=== PATIENT | male | born 1960 | race Caucasian/White ===

== ENCOUNTER → 2024-02-15 14:55 | Outpatient (REF) | payer OTHER, SELFPAY | LOC: MRI 3T 14:55 | PROVIDERS: ATTENDING PHYSICIAN Surgery; FAMILY PHYSICIAN Family Medicine | DX: R97.20 Elevated prostate specific antigen [PSA] (principal) | CPT/HCPCS: 72197; A9575 ==

== ENCOUNTER → 2024-03-21 07:29 | Outpatient (REF) | payer OTHER, SELFPAY | LOC: RAD 07:29 | PROVIDERS: ATTENDING PHYSICIAN Family Medicine | DX: I65.21 Occlusion and stenosis of right carotid artery (principal) | CPT/HCPCS: 93880 ==

== ENCOUNTER 2025-06-12 22:08 | Inpatient (IN) | payer MEDICARE, OTHER, SELFPAY ==
[2025-06-12 17:02] VITALS: BP 175/97
[2025-06-12 17:26] LABS: Urine Character Slightly Cloudy (Clear)
[2025-06-12 17:28] LABS: Hematocrit 38.7 % (39.0-52.0); Hemoglobin 13.1 g/dL (13.0-18.0); Mean Corp Hgb Conc. 33.9 g/dL (33.0-37.0); Mean Corpuscular Volume 91.9 fL (80.0-94.0); Nucleated Red Blood Cells % 0 % (-); Platelet Count 253 10^3/uL (130-400); Red Cell Dist. Width 12.9 % (11.5-14.5)
[2025-06-12 17:35] LABS: Urine Squamous Cell 0-2 /LPF (Few)
[2025-06-12 17:36] LABS: Urine Red Blood Cell 0-2 /HPF (0-2); Urine White Cell 50-60 /HPF (0-5)
[2025-06-12 17:43] LABS: ALT (SGPT) 46 U/L (0-50); AST (SGOT) 42 U/L (17-59); Albumin 4.0 g/dl (3.5-5.0); Alkaline Phosphatase 77 U/L (38-126); Blood Urea Nitrogen 9 mg/dl (9-20); Calcium 9.1 mg/dl (8.4-10.2); Carbon Dioxide 27 mmol/L (22-30); Chloride 103 mmol/L (98-107); Glucose 93 mg/dl (70-99); Potassium 4.4 mmol/L (3.5-5.1); Sodium 136 mmol/L (135-145); Total Protein 6.9 g/dl (6.3-8.2); eGFR > 60.00
--- NOTE | 2025-06-12 20:30 | ED.GENMED ---
History of Present Illness
General
Chief Complaint: Post Operative Problem(s)
Source: patient and spouse
Exam Limitations: none
Time Seen by Provider: 06/12/25 20:20
Nursing documentation reviewed up to this point in time: agreed with
History of Present Illness
History of Present Illness:
65-year-old male with a past medical history hypertension who presents to the ER for evaluation of fever and chills. Patient notably had a prostate biopsy on 06/04 after an elevated PSA; this was done at [facility] through Dr. Mei
Leidy. He was sent home on prophylactic antibiotic cefpodoxime x 3 days. He completed the course last . He says that Wednesday night into Wednesday morning he had shaking chills with a fever of 101 �F. He was taking Tylenol over the
weekend and felt generally well but yesterday and today again was having subjective fever and chills. He has been having some dysuria over the past few days and says that today he noticed some trace hematuria. He called his urologist who
recommended he come to the ER for assessment. He denies any abdominal or flank pain. He denies any other acute issues.
Review of Systems
Review of Systems
All Other Systems: ROS reviewed and negative except as documented in HPI and ROS
Constitutional: Reports fever and chills
Respiratory: Denies cough or trouble breathing
Cardiac: Denies chest pain
ABD/GI: Denies abdominal pain, nausea or vomiting
: Reports dysuria and bleeding; Denies flank pain
Musculoskeletal: Denies neck pain or back pain
Neurological: Denies headache
Phy Exam
Physical Exam
Physical Exam:
General: Awake, alert, oriented x3; no acute distress
Head: Normocephalic, atraumatic
Eyes: Conjunctiva normal, sclera anicteric
Throat: Airway intact, handling secretions
Neck: Trachea midline, supple without meningismus
Lungs: Breathing comfortably not in distress
Heart: Regular rate
Abd: Soft, non distended, nontender
Back: No CVA tenderness
Neuro: Grossly intact
Extremities: Warm and well-perfused
Scores
Heart Failure Risk
Heart Failure Risk Score: Not Applicable
Heart Score for Chest Pain Patients
STEMI patient?: Not applicable
Withdrawal Assessment of Alcohol
Withdrawal Assessment Completed?: Not applicable
Course
Orders/Labs/Results
Orders:
Orders
06/12/25 17:09
Complete Blood Count/With Diff Urgent
Comprehensive Metabolic Panel Urgent
Lactic Acid Urgent
Urinalysis Reflex To Culture Urgent
Date Specimen was Collected: 06/12/25
Time Specimen was Collected: 17:07
Urine Microscopic Reflex Cult Urgent
Blood Culture Routine
VASILE Source: Blood/Venous
Specimen Description:
Urine Culture Urgent
VASILE Source: U
Specimen Description:
Date Specimen was Collected: 06/12/25
Time Specimen was Collected: 17:07
06/12/25 21:00
Piperacillin/Tazo 3.375 Gram [Zosyn] 3.375 gram in 50 ml IV NOW
06/12/25 21:15
Blood Culture Q30M
VASILE Source: Blood/Venous
Specimen Description:
06/12/25 21:45
Blood Culture Q30M
VASILE Source: Blood/Venous
Specimen Description:
Abnormal Lab Results
06/12/25
17:09
WBC 13.3 H 10^3/uL
(4.8-10.8)
RBC 4.21 L 10^6/uL
(4.70-6.10)
Hct 38.7 L %
(39.0-52.0)
MCH 31.1 H pg
(27.0-31.0)
Abs Immat Gran (auto) 0.1 H 10^3/uL
(0-0.05)
Absolute Neuts (auto) 9.9 H 10^3/uL
(1.4-6.5)
Absolute Monos (auto) 1.6 H 10^3/uL
(0.1-0.6)
Lymphocytes % 12.6 L %
(20.5-51.1)
Monocytes % 12.2 H %
(1.7-9.3)
Ur Occult Blood Reflex 4+ A
(Negative)
Leukocyte Esterase Rfl 3+ A
(Negative)
Urine WBC (Reflex) 50-60 A /HPF
(0-5)
Urine Bacteria (Reflex) Few A
(Negative)
Urine Albumin (Reflex) 2+ A
(Neg - Trace)
06/12/25 17:09
06/12/25 17:09
Vital Signs
Initial and Last Documented VS:
Initial Vital Signs
Temp Pulse Resp BP Pulse Ox
37.5 C 91 16 175/97 97
06/12/25 17:02 06/12/25 17:02 06/12/25 17:02 06/12/25 17:02 06/12/25 17:02
Last Documented Vital Signs
Temp Pulse Resp BP Pulse Ox
37.5 C 91 16 175/97 97
06/12/25 17:02 06/12/25 17:02 06/12/25 17:02 06/12/25 17:02 06/12/25 20:34
MDM/Problems Addressed
Differential Diagnosis Includes:
Prostatitis, cystitis/urethritis
MDM/Problems Addressed:
65-year-old male presents for evaluation of fever and chills after recent prostate biopsy. Hypertensive but otherwise acceptable vitals. Physical exam as above. He had labs sent in triage including a CBC which showed a leukocytosis to 13.3. CMP
no clinically significant abnormalities. Lactate less than 2. His urinalysis is positive for bacteria pyuria. Suspect UTI/prostatitis. Overall patient is well-appearing; although he does have leukocytosis he is normotensive, heart rate in the
80s during my assessment, no fever here. Will discuss treatment plan with patient's urologist at [facility].
Discussed case with urologist at [facility]recommended admission on IV antibiotics pending culture of urine and blood. Recommended starting with broad-spectrum antibiotics. Case discussed with hospitalist for admission.
*Pulse Oximetry
SaO2: 97
Oxygen Mode of Delivery: Room air
Patient hypoxic: no (97%)
*Critical Care Note
Total Time (30-74mins, 75-104mins- exclusive of procedures): Not Applicable
Data Reviewed
Source: patient, records and spouse
Patient Management
Discussion with other providers: Hospitalist (Discussed with hospitalist) and Food [employer] Beverage Intern (Discussed with his urologist)
Escalation/DeEscalation of care consider admission/obs:
Admission indicated
ED Attending Note
-
Portions of this chart may have been created with voice recognition software.� Occasional wrong word or��sound alike� substitutions may have occurred due to the inherent limitations of voice recognition software.
Discharge Plan
Departure
Patient Disposition: Admit
Date of Disposition: 06/12/25
Time of Disposition: 21:02
Admit to doctor: Idalmis
Presentation/result/management discussed w/ accepting MD/DO: Hospitalist
Discharge Problem:
Acute UTI
Referrals:
Yanick Tucker MD [Family Provider, Family Practice]
Interventions
Interventions:
*Risk Screen - Suicide Last Done: 06/12/25 17:02
*General Assessment Last Done: 06/12/25 17:02
*Neglect/Abuse Screening Last Done: 06/12/25 17:02
*ED COVID-19 Vaccine History Last Done: 06/12/25 17:02
*ED Influenza Vaccine History Last Done: 06/12/25 17:02
ED-Skin Assessment Last Done: 06/12/25 20:30
Discharge Date and Time
Print Language: SWEDISH
[2025-06-12] MEDS: ZOSYN 50 IV (21:22)
--- NOTE | 2025-06-12 21:22 | HPS.HSE ---
Family Physician
-
Family Physician: Yanick Tucker
Chief Complaint
-
FEVER, CHILLS, DYSURIA
History of Present Illness
65-year-old male with a past medical history hypertension who presents to the ER for evaluation of fever and chills. Patient notably had a prostate biopsy on 06/04 after an elevated PSA; this was done at [facility] through Dr. Mei
Leidy. He was sent home on prophylactic antibiotic cefpodoxime x 3 days. He completed the course last . He says that Wednesday night into Wednesday morning he had shaking chills with a fever of 101 �F. He was taking Tylenol over the
weekend and felt generally well but last night he started having fever, shaking chills. today he noted painful urination and some blood in his urine. he complained of THORPE. denied dizzy or syncope. denied chest pain sob. denied abdominal pain,n,v,d.
concern for prostatitis. gave Zosyn. admitting for further management.
Medical History
Past Medical History
Past Medical History: Reports Other
Additional Past Medical History:
hypertension, hyperlipidemia, BPH
Past Surgical History: Reports Other
Additional Past Surgical History:
b/l knee replacement
Social History
Tobacco: Non-smoker
Alcohol: Occasional
Family History
Family History: Not pertinent
Allergies / Home Medications
Allergies reflects when Allergies were last updated in [employer].
Home Medications with original date entered in [employer]
Allergy/Medication List:
Allergies
Allergy/AdvReac Type Severity Reaction Status Date / Time
No Known Allergies Allergy Unverified 06/12/25 17:08
Review of Systems
-
Constitutional: Reports Fever and Chills
EENT: Reports No Symptoms
Respiratory: Reports No Symptoms
Cardiac: Reports No Symptoms
Abdomen/GI: Reports No Symptoms
: Reports Dysuria and Bleeding
Musculoskeletal: Reports No Symptoms
Skin: Reports No Symptoms
Neurological: Reports No Symptoms
Endocrine: Reports No Symptoms
Hematologic/Lymphatic: Reports No Symptoms
Psych: Reports No Symptoms
Physical Exam
Vital Signs
Vital Signs
Temp Pulse Resp BP Pulse Ox
99.5 F 91 16 175/97 97
06/12/25 17:02 06/12/25 17:02 06/12/25 17:02 06/12/25 17:02 06/12/25 20:34
Physical Exam
General: Well Developed, Well Nourished and No Apparent Distress
HEENT: NormoCephalic, Moist mucous membranes and Atraumatic
Respiratory: Clear
Cardiac: S1/S2 and Regular Rhythm; No Murmur or Rub
GI: Soft, Non Tender, Non Distended and Normal Bowel Sounds; No Organomegaly
Rectal: Deferred by Provider
Musculoskeletal: No Clubbing, No Cyanosis and No Edema
Skin: No Rash
Neuro: AO x 3 and Nonfocal/grossly intact
Psych: Calm
Laboratory Results
-
06/12/25 17:09
06/12/25 17:09
Laboratory Results
Lactic Acid 0.9 mmol/L (0.7-2.0) 06/12/25 17:09
Total Bilirubin 0.4 mg/dl (0.2-1.3) 06/12/25 17:09
AST 42 U/L (17-59) 06/12/25 17:09
ALT 46 U/L (0-50) 06/12/25 17:09
Alkaline Phosphatase 77 U/L (38-126) 06/12/25 17:09
Data Reviewed
-
Lab Data: Labs Reviewed by me
Impression/Plan
-
# Fever, chills, dysuria concern for prostatitis
# Status post prior prostate biopsy last week
- IV cefepime continued
- Urine and blood culture sent from ER
- Tylenol as needed for fever or pain
- WBC 13.3, afebrile
#essential HTN
-valsartan continued
#DVT prophylaxis
-scd
#CODE status
-full code
[2025-06-12 21:23] VITALS: BMI 30.1
--- NOTE | 2025-06-12 21:47 | W.PN.UPDATE ---
Update Note
Progress Note Update
Patient seen in conjunction with nurse practitioner. I agree with the findings on history and physical and I concur with assessment and plan.
Patient is a 65-year-old with past medical history of hypertension as well as history of elevated PSA and prostatic dysplasia who underwent scheduled prostate biopsy via rectal approach 1 week ago. Today. Pain and patient is also known to
[facility]. Patient was covered with prophylactic antibiotics (cefpodoxime) postprocedure. He completed antibiotics on . He started having CVA dysuria on Wednesday. He denies flank pain. He does report rigors and chills. Did not have any
fever. Denies any constipation. Symptoms appear to wax and wane over the weekend but in the last 2 days they have become more persistent with recurrent rigors and transient hematuria.
In the emergency department he was afebrile, blood pressure was 175/90 with a pulse rate of 94
He was satting 96% on room air. Tmax was 99.5.
He had a white count of 13.3 otherwise CBC unremarkable. Electrolytes BUN and creatinine were normal. UA with 2 WBCs leukocyte esterase and a few bacteria.
Plan
65-year-old with. Status post prostate biopsy and likely here with prostatitis secondary to biopsy despite prophylactic antibiotics.
� Admit to MedSurg
� Blood cultures
� Urine cultures
� Of IV cefepime for now pending culture results
� Pain control
�Continue his valsartan
DVT prophylaxis - SCD
CODE STATUS�full code
[2025-06-12 22:32] VITALS: BP 153/70; BMI 28.6
[2025-06-12 22:37] VITALS: BMI 28.6
[2025-06-12] MEDS: TYLENOL 650 MG PO (22:49)
[2025-06-12] MEDS: STERILE WATER FOR INJECTION 10 ML IV (23:00)
[2025-06-12] MEDS: MAXIPIME 2000 MG IV (23:00)
--- NOTE | 2025-06-12 23:08 | PTCARENOTE ---
pt is aaox3, reports burning sensation w/ urination. pt also has a headache - given Tylenol. pt is oriented to room w/ call lynch in reach.
[2025-06-12 23:55] VITALS: BP 134/62
[2025-06-13] MEDS: TYLENOL 650 MG PO ×3 (05:11→19:04)
[2025-06-13 07:35] VITALS: BP 146/74
[2025-06-13] MEDS: DIOVAN 160 MG PO (08:32)
[2025-06-13] MEDS: STERILE WATER FOR INJECTION 10 ML IV ×3 (08:32→23:08)
[2025-06-13] MEDS: MAXIPIME 2000 MG IV ×3 (08:33→23:08)
[2025-06-13 08:47] LABS: Hematocrit 38.0 % (39.0-52.0); Hemoglobin 12.9 g/dL (13.0-18.0); Mean Corp Hgb Conc. 33.9 g/dL (33.0-37.0); Mean Corpuscular Volume 91.6 fL (80.0-94.0); Platelet Count 259 10^3/uL (130-400); Red Cell Dist. Width 13.1 % (11.5-14.5)
[2025-06-13 09:46] LABS: Blood Urea Nitrogen 8 mg/dl (9-20); Calcium 8.8 mg/dl (8.4-10.2); Carbon Dioxide 25 mmol/L (22-30); Chloride 105 mmol/L (98-107); Estimated Creatinine Clearance 109 ml/min; Glucose 104 mg/dl (70-99); Potassium 4.4 mmol/L (3.5-5.1); Sodium 137 mmol/L (135-145); eGFR > 60.00
--- NOTE | 2025-06-13 13:26 | W.PN.HOSP.TC ---
Today's Communication/Plan
-
f/u urine/blood cs report
maintain on iv abx
CT pelvis ordered
Assessment / Plan
Assessment / Plan
1. UTI
Presumed acute prostatitis
Sepsis - POA - tachycardic/febrile/leukocytosis
- Status post prior prostate biopsy last week
- UA showing pyuria and bacteriuria
- Urine and blood culture sent from ER
- on empiric cefepime, to continue for now
- check CT pelvis
2. Essential HTN
-valsartan continued
DVT prophylaxis-scd
CODE status-full code
Anticipated Discharge: 24 - 48 hours
Subjective/Interval History
-
Date of Service: June 13, 2025
Noted some blood, denies dysuria
no abd pain/nausea/vomiting
Objective Data
-
Labs:
Laboratory Results
06/13/25
08:05
WBC 16.4 H
Hgb 12.9 L
Hct 38.0 L
Plt Count 259
Sodium 137
Potassium 4.4
Chloride 105
Carbon Dioxide 25
BUN 8 L
Creatinine 0.7
Glucose 104 H
Calcium 8.8
Vital Signs:
Vital Signs
Temp Pulse Resp BP Pulse Ox
98.7 F 84 16 146/74 96
06/13/25 07:35 06/13/25 07:35 06/13/25 07:35 06/13/25 08:32 06/13/25 07:35
I&O
06/12/25 06/13/25 06/14/25
06:59 06:59 06:59
Intake Total 300 / 300
Balance 300 / 300
Review of Systems
-
Respiratory: Reports No Symptoms
Cardiac: Reports No Symptoms
Abdomen/GI: Reports No Symptoms
Physical Exam
-
General: Negative Appears in Distress
HEENT: Negative Oxygen
Neuro: Awake, Alert, Oriented and No Motor Deficits
[2025-06-13 15:25] VITALS: BP 147/66
--- NOTE | 2025-06-13 16:43 | CM ---
manager linux reviewed patient's chart and met with patient and patient lives with spouse multilevel home is independent with adl's and ambulation, no dme, patient drives, home no needs when stable.
PCP: Dr. Yanick Tucker
Pharmacy: [facility] in [place].
[2025-06-13 23:45] VITALS: BP 129/70
[2025-06-14 07:38] VITALS: BP 155/92
[2025-06-14] MEDS: DIOVAN 160 MG PO (08:38)
[2025-06-14] MEDS: MAXIPIME 2000 MG IV (08:38)
[2025-06-14] MEDS: STERILE WATER FOR INJECTION 10 ML IV (08:38)
[2025-06-14 10:59] LABS: Hematocrit 38.3 % (39.0-52.0); Hemoglobin 12.5 g/dL (13.0-18.0); Mean Corp Hgb Conc. 32.6 g/dL (33.0-37.0); Mean Corpuscular Volume 92.7 fL (80.0-94.0); Platelet Count 278 10^3/uL (130-400); Red Cell Dist. Width 13.1 % (11.5-14.5)
[2025-06-14 11:03] LABS: Blood Urea Nitrogen 10 mg/dl (9-20); Calcium 8.8 mg/dl (8.4-10.2); Carbon Dioxide 28 mmol/L (22-30); Chloride 104 mmol/L (98-107); Estimated Creatinine Clearance 109 ml/min; Glucose 115 mg/dl (70-99); Potassium 4.7 mmol/L (3.5-5.1); Sodium 137 mmol/L (135-145); eGFR > 60.00
--- NOTE | 2025-06-14 11:50 | CM ---
Chart reviewed. Patient will d/c home today
Met w/ patient and spouse bedside. IMM verbally reviewed, copy provided, copy on chart
No CM needs at this time
Plan: Home, no needs
[2025-06-14 12:05] VITALS: BP 148/73
--- NOTE | 2025-06-14 12:35 | W.DCSUMMARY ---
Discharge Summary
Discharge Data
Date of Admission: 06/12/25
Date of Discharge: 06/14/25
-
Pending Results: No
Hospital Course
Discharging Physician : Dr Leobardo Alfonso
Disposition : To home
Primary care physician : Dr Lan Tucker
Principal Discharge diagnosis :
Pseudomonal Urinary tract infection
Chronic Discharge diagnosis :
Essential HTN
Physical examination:
HEENT: moist mucus membrane
Chest: Clear to auscultation
Heart: N s1/s2, RRR, no rub/murmur/gallops
Abd: N BS, soft, nontender, nondistended, no organomegaly
Neuro: No motor deficit, aox3
Ext: No cyanosis, Clubbing, edema
Hospital Course :
Patient is a 65 year old male with past medical history of hypertension and recent prostate biopsy came to ER with new onset fever/chills and some dysuria. Patient UA in ER showing pyuria and bacteriuria. Patient diagnosed to have UTI and sepsis
from it. Urine culture and blood culture were collected. In light of recent prostate biopsy patient had CT pelvis, which did not show any acute findings. Urine culture grew pseudomonas , which was pansensitive to antibiotics. Patient was
discharged on 7 days course of levofloxacin. Patient is planned to follow up with urology in office in 1 week.
Important imaging findings :
None
Procedure findings :
None
Discharge Plan
-
Patient Disposition: Home (Routine Discharge)
Discharge Diagnosis/Procedures: Urinary tract infection
Condition: Fair
Diet: Regular
Activity: As tolerated
Driving Restrictions: No driving
Bathing Restrictions: OK to Shower
Referrals:
Yanick Tucker MD [Family Provider, [facility]] - in one week
Prescriptions:
New
levofloxacin 750 mg tablet
750 mg PO DAILY Qty: 7 0RF
Continued
valsartan 160 mg tablet
160 mg PO DAILY
Discharge Orders:
Discharge Patient (As Directed); Ordered 06/14/25
Ordered By: Leobardo Alfonso
Discharge Date and Time
Discharge Date/Time: 06/14/25 12:33
Print Language: GERMAN
[2025-06-14 20:31] LABS: Hepatitis C Antibody Negative (Negative)
== END 2025-06-14 12:33 | disposition home or self-care (01) | DRG 862 ==
LOC: 4 EAST ACU 22:08
PROVIDERS: Emergency Medicine; Registered Nurse; ADMITTING PHYSICIAN Internal Medicine; ATTENDING PHYSICIAN Hospitalist; EMERGENCY PHYSICIAN Emergency Medicine; FAMILY PHYSICIAN Family Medicine
DX: T81.43XA Infection following a procedure, organ and space surgical site, initial encounter (principal); A41.52 Sepsis due to Pseudomonas; N41.0 Acute prostatitis; I10 Essential (primary) hypertension; E78.5 Hyperlipidemia, unspecified; N40.0 Benign prostatic hyperplasia without lower urinary tract symptoms; Z96.653 Presence of artificial knee joint, bilateral; Y84.8 Other medical procedures as the cause of abnormal reaction of the patient, or of later complication, without mention of misadventure at the time of the procedure
CPT/HCPCS: 72193; 80048; 80053; 81003; 81015; 83605; 85025; 85027; 86803; 87040; 87077; 87086; 87186; 96365; 99284; Q9967